=== PATIENT | male | born 1965 | race American Indian/Alaskan Native ===

== ENCOUNTER 2019-05-26 17:18 | Inpatient (IN) | payer MEDICARE, OTHER, SELFPAY ==
[2019-05-26] VITALS (20 sets, daily range): BP systolic 110–153; BP diastolic 54–88; PULSE 72–85; RESP 16–41; TEMP 36.9–38.3; O2SAT 90–94; BMI 55.6
--- NOTE | 2019-05-26 17:29 | DI.RAD.S_ITS ---
PROCEDURE: XR CHEST 1V INDICATIONS: chest pain TECHNIQUE: One view of the chest was acquired. COMPARISON: None. FINDINGS: Surgical changes and devices: Left-sided dual-lead pacemaker is present. Lungs and pleura: Lungs demonstrate patchy multifocal bilateral alveolar opacities including horizontal midlung linear opacities and mild right pleural thickening. No significant effusion. No pneumothorax. Mediastinum: Mediastinal contours appear normal. Heart size is mildly enlarged. Bones and chest wall: No suspicious bony lesions. Overlying soft tissues appear unremarkable. IMPRESSION: 1. Multifocal bilateral alveolar opacities may be infectious or inflammatory. Pulmonary edema is not excluded but felt less likely. 2. Mild cardiomegaly with pacemaker. Dictated by: Samia Ferreira M.D. on 05/26/2019 at 18:49 Approved by: Samia Ferreira M.D. on 05/26/2019 at 18:50
[2019-05-26] MEDS: NITROGLYCERIN 0.4 MG SL TAB SL ×3 (17:40→18:28)
[2019-05-26 17:57] LABS: Add Manual Diff / Slide Review NO; Basophils Absolute Auto 100 /uL (0-100); Basophils Percent Auto 0.5 % (0-2); Eosinophils Absolute Auto 0 /uL (0-450); Eosinophils Percent Auto 0.3 % (2-4); Hemoglobin 16.8 g/dL (13.5-17.5); Lymphocytes Absolute Auto 300 /uL (1100-4500); Mean Corpuscular HGB Conc 34.2 % (30-36); Mean Corpuscular Hemoglobin 32.4 PG (26-34); Mean Corpuscular Volume 94.8 fL (80-100); Monocytes Absolute Auto 800 /uL (0-900); Monocytes Percent Auto 8.1 % (3-14); Neutrophils Absolute Auto 9100 /uL (1500-7000); Neutrophils Percent Auto 88.1 % (50-75); Platelet Count 165 X10^3/uL (150-400); Red Blood Cell Count 5.18 X10^6/uL (4.5-5.9); Red Cell Distribution Width 13.5 % (11.6-14.8); White Blood Cell Count 10.4 X10^3/uL (4.5-11.0)
[2019-05-26 18:02] LABS: INR 1.2 (0.9-1.3)
[2019-05-26] MEDS: MORPHINE 4 MG/ML INJ IV ×2 (18:02→20:30)
[2019-05-26 18:04] LABS: PTT Partial Thromboplastin Tim 36 SECONDS (26.4-36.2)
[2019-05-26 18:08] LABS: Alanine Aminotransferase 16 IU/L (<50); Albumin 4.3 g/dL (3.5-5.0); Albumin Globulin Ratio 1.2 (1.0-2.8); Alkaline Phosphatase 123 U/L (38-126); Aspartate Aminotransferase 22 IU/L (17-59); BUN Creatinine Ratio 12.9 (6-22); Bilirubin Total 0.8 mg/dL (0.2-1.3); Blood Urea Nitrogen 9 mg/dL (9-20); Calcium 9.2 mg/dL (8.4-10.2); Carbon Dioxide 27 mmol/L (22-32); Chloride 105 mmol/L (98-107); Creatine Kinase 94 U/L (55-170); Estimated Glomerular Filt Rate > 60.0 mL/min (>60); Globulin 3.6 g/dL (1.7-4.1); Glucose 120 mg/dL (70-100); HEMOLYSIS 15 (0-50); Lipase 22 U/L (23-300); Magnesium 1.7 mg/dL (1.6-2.3); Sodium 139 mmol/L (137-145); Total Protein 7.9 g/dL (6.3-8.2)
--- NOTE | 2019-05-26 18:18 | ED.CHESTPAIN ---
HPI - Chest Pain General Chief Complaint: Chest Pain Stated Complaint: chest pain/has pacemaker difibulater 3 lead Time Seen by Provider: 05/26/19 18:08 Source: patient Mode of arrival: Wheelchair Limitations: no limitations History of Present Illness HPI narrative: This is a 53-year-old male who comes to the emergency department with complaint of chest pain and shortness of breath that he states started about 2:00 a.m. this afternoon. Patient states that yesterday he was around his brother who has been sick with upper respiratory cold cough and congestive type symptoms. He started feeling a little bit of nasal congestion and mild cough although he denies any fevers. He states that the shortness of breath was sort of a slow onset. Chest pain is centralized maybe some slight radiation to his back but not to neck or arms. He describes it as a 7/10 initially 5/10 after nitro. He has also noticed swelling in his lower extremities for the past 4 days and started taking an extra Lasix. Patient has been slightly nauseated but no vomiting. No issues with bowel movement or urination. Patient states he has had a heart attack in the past he states he has had a cardiac catheterization but did not have any angioplasty or stents placed. He is on Eliquis he does have a defibrillator/pacemaker and states he had ablation in 2018 as well. He denies any other surgical interventions. Patient states he is allergic to aspirin and gets anaphylaxis. 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 He also uses a CPAP and is supposed to use oxygen with his CPAP (has nasal prongs) he states he typically runs around 93% when he has seen his physicians. He is on carvedilol, lisinopril, Lasix, denies any diabetes or renal issues. States that he is currently homeless in visiting family in an [facility] but normally lives in [place]. Related Data Home Medications Medication Instructions Recorded Confirmed apixaban [Eliquis] 5 mg PO BID 05/26/19 05/26/19 carvedilol 12.5 mg PO BID 05/26/19 05/26/19 duloxetine 90 mg PO DAILY 05/26/19 05/26/19 furosemide 40 mg PO DAILY 05/26/19 05/26/19 lamotrigine 25 mg PO BEDTIME 05/26/19 05/26/19 lisinopril 5 mg PO BID 05/26/19 05/26/19 oxycodone-acetaminophen 1 tab PO QID PRN 05/26/19 05/26/19 spironolactone 25 mg PO DAILY 05/26/19 05/26/19 Allergies Allergy/AdvReac Type Severity Reaction Status Date / Time aspirin Allergy Severe Anaphylaxis Verified 05/26/19 20:05 Review of Systems Review of Systems ROS Unobtainable: All systems reviewed & are unremarkable except as noted in HPI and below Patient History Medical History Asthma (Acute) Atrial fibrillation with RVR (Acute) CHF (congestive heart failure) (Acute) Hypertension (Acute) Hypokalemia (Acute) BIPIN (obstructive sleep apnea) (Acute) Surgical History AICD (automatic cardioverter/defibrillator) present (Acute) H/O cardiac radiofrequency ablation (Acute) Hx of tonsillectomy (Acute) Social History household members: none Smoking Status: Former smoker Smoking Status: Former smoker alcohol intake frequency: 0-2 drinks per day Substance Use Type: does not use Exam Narrative Exam Narrative: GENERAL: Alert and oriented x three, obese male in mild distress. HEENT: Head normocephalic, atraumatic, EOMI, pupils reactive, face symmetric, moist mucous membranes NECK: Supple, full range of motion CARDIOVASCULAR: Regular rate and rhythm without murmurs, rubs or gallops. RESPIRATORY: Breath sounds equal bilaterally, no wheezes, no rhonchi. Crackles bilateral bases but auscultated easier on right. Positive for tachypnea. No accessory muscle use. No audible wheeze. No stridor. ABDOMEN: Soft, nontender. Normoactive bowel sounds all 4 quadrants. No guarding or rebound, rigidity, no mass : No CVA tenderness EXTREMITIES: Normal range of motion, trace edema bilateral lower extremities. Neurovascularly intact NEUROLOGICAL: Cranial nerves II through XII grossly intact. Moving all extremities SKIN: Warm, dry, no petechiae, no rashes or lesions. Initial Vital Signs Initial Vital Signs: Vital Signs Temperature 98.4 F 05/26/19 17:20 Pulse Rate 75 05/26/19 17:20 Respiratory Rate 40 H 05/26/19 17:20 Blood Pressure 147/81 H 05/26/19 17:20 Pulse Oximetry 90 L 05/26/19 17:20 Course Orders Ordered: Albuterol (Ventolin) 2.5 mg INH [id number] PRN PRN Reason: Shortness Of Breath Albuterol/Ipratropium (Duoneb) 3 ml INH RTBID MAEGAN Last Admin: 05/27/19 04:51 Dose: 3 ml Documented by: MARCOSARP Apixaban (Eliquis) 5 mg PO BID MAEGAN Carvedilol (Coreg) 12.5 mg PO BID MAEGAN Duloxetine HCl (Cymbalta) 90 mg PO DAILY MAEGAN Furosemide (Lasix) 40 mg PO DAILY MAEGAN Lisinopril (Zestril) 5 mg PO BID MAEGAN Oseltamivir Phosphate (Tamiflu) 75 mg PO BID [facility] Stop: 06/01/19 08:59 Pantoprazole Sodium (Protonix) 40 mg IV DAILY [facility] Sodium Chloride (Normal Saline 0.9% Flush) 10 ml IV PRN PRN PRN Reason: Flush Last Admin: 05/27/19 02:40 Dose: 10 ml Documented by: SSARDEL Sodium Chloride (Normal Saline 0.9% Flush) 10 ml IV BID [facility] Spironolactone (Aldactone) 25 mg PO DAILY [facility] Discontinued Medications Acetaminophen (Tylenol) 975 mg PO NOW ONE Stop: 05/26/19 18:53 Last Admin: 05/26/19 18:56 Dose: 975 mg Documented by: TARAN Fentanyl (Sublimaze) 50 mcg IV NOW ONE Stop: 05/26/19 18:20 Last Admin: 05/26/19 19:37 Dose: 50 mcg Documented by: TARAN Furosemide (Lasix) 40 mg IV NOW ONE Stop: 05/26/19 18:20 Last Admin: 05/26/19 18:28 Dose: 40 mg Documented by: TARAN Morphine Sulfate (Morphine) 4 mg IV NOW ONE Stop: 05/26/19 17:57 Last Admin: 05/26/19 18:02 Dose: 4 mg Documented by: TARAN Morphine Sulfate (Morphine) 4 mg IV NOW ONE Stop: 05/26/19 20:17 Last Admin: 05/26/19 20:30 Dose: 4 mg Documented by: TARAN Morphine Sulfate (Morphine) 4 mg IV NOW ONE Stop: 05/27/19 02:06 Last Admin: 05/27/19 02:40 Dose: 4 mg Documented by: TREVER Nitroglycerin (Nitrostat) 0.4 mg SL [id number] PRN PRN Reason: Chest Pain Last Admin: 05/26/19 18:28 Dose: 0.4 mg Documented by: Admin: 05/26/19 18:04 Dose: 0.4 mg Documented by: Admin: 05/26/19 17:40 Dose: 0.4 mg Documented by: TARAN Nitroglycerin (Nitro-Bid) 1 inch TOP NOW ONE Stop: 05/26/19 18:25 Last Admin: 05/26/19 18:31 Dose: 1 inch Documented by: TARAN Oseltamivir Phosphate (Tamiflu) 75 mg PO NOW ONE Stop: 05/26/19 19:20 Last Admin: 05/26/19 20:19 Dose: 75 mg Documented by: TARAN Vital Signs Vital signs: Vital Signs - 8 hr 05/26/19 17:20 05/26/19 17:25 05/26/19 17:40 Temperature 98.4 F Pulse Rate 75 78 Respiratory Rate 40 H 38 H Blood Pressure 147/81 H 146/62 H Blood Pressure [Left Arm] 134/69 Pulse Oximetry 90 L 94 05/26/19 17:41 05/26/19 17:59 05/26/19 18:04 Temperature Pulse Rate 72 75 75 Respiratory Rate 38 H 32 H Blood Pressure 125/62 Blood Pressure [Left Arm] 146/62 H 110/54 L Pulse Oximetry 92 91 05/26/19 18:27 05/26/19 18:28 05/26/19 18:31 Temperature Pulse Rate 75 75 75 Respiratory Rate 32 H Blood Pressure 121/64 127/64 Blood Pressure [Left Arm] 121/64 Pulse Oximetry 90 L 05/26/19 18:45 05/26/19 18:56 05/26/19 19:00 Temperature 101 F H Pulse Rate 75 75 Respiratory Rate 33 H 33 H Blood Pressure Blood Pressure [Left Arm] 128/67 139/72 Pulse Oximetry 91 92 05/26/19 19:15 05/26/19 19:30 Temperature Pulse Rate 75 75 Respiratory Rate 39 H 35 H Blood Pressure Blood Pressure [Left Arm] 139/72 132/67 Pulse Oximetry 92 MDM - Chest Pain Lab Data Attestation: I reviewed the patient's lab results. Result diagrams: 05/27/19 03:10 05/27/19 03:10 Labs: Lab Results 05/26/19 05/26/19 05/26/19 Range/Units 17:42 17:42 17:42 WBC 10.4 (4.5-11.0) X10^3/uL RBC 5.18 (4.5-5.9) X10^6/uL Hgb 16.8 (13.5-17.5) g/dL Hct 49.0 (41-53) % MCV 94.8 (80-100) fL MCH 32.4 (26-34) PG MCHC 34.2 (30-36) % RDW 13.5 (11.6-14.8) % Plt Count 165 (150-400) X10^3/uL Neut % (Auto) 88.1 H (50-75) % Lymph % (Auto) 3.0 L (25-40) % Levy % (Auto) 8.1 (3-14) % Eos % (Auto) 0.3 L (2-4) % Baso % (Auto) 0.5 (0-2) % Neut # (Auto) 9100 H (7069-6172) /uL Lymph # (Auto) 300 L (9520-4961) /uL Levy # (Auto) 800 (0-900) /uL Eos # (Auto) 0 (0-450) /uL Baso # (Auto) 100 (0-100) /uL PT 14.0 H (10.1-12.7) SECONDS INR 1.2 (0.9-1.3) APTT 36 (26.4-36.2) SECONDS ABG pH (7.35-7.45) ABG pCO2 (35-45) mmHg ABG pO2 (80-100) mmHg ABG HCO3 (22-26) mmol/L ABG Total CO2 (21-31) mmol/L ABG O2 Saturation (95-100) % ABG Base Excess (-2-2) mmol/L FiO2 Sodium 139 (137-145) mmol/L Potassium 4.0 (3.4-5.1) mmol/L Chloride 105 (98-107) mmol/L Carbon Dioxide 27 (22-32) mmol/L BUN 9 (9-20) mg/dL Creatinine 0.70 (0.66-1.25) mg/dL Estimated GFR > 60.0 (>60) mL/min BUN/Creatinine Ratio 12.9 (6-22) Glucose 120 H (70-100) mg/dL Lactate (0.7-2.1) mmol/L Calcium 9.2 (8.4-10.2) mg/dL Magnesium 1.7 (1.6-2.3) mg/dL Total Bilirubin 0.8 (0.2-1.3) mg/dL AST 22 (17-59) IU/L ALT 16 (<50) IU/L Alkaline Phosphatase 123 (38-126) U/L Total Creatine Kinase 94 (55-170) U/L CK-MB (CK-2) TNP CK-MB (CK-2) Rel Index TNP Troponin I < 0.012 (0.01-0.034) ng/mL NT-Pro-B Natriuret Pep 1060 H (<125) pg/mL Total Protein 7.9 (6.3-8.2) g/dL Albumin 4.3 (3.5-5.0) g/dL Globulin 3.6 (1.7-4.1) g/dL Albumin/Globulin Ratio 1.2 (1.0-2.8) Lipase 22 L (23-300) U/L Urine Color Urine Appearance Urine pH (4.5-8.0) Ur Specific [place] (1.000-1.035) Urine Protein (Negative) Urine Glucose (UA) (Negative) g/dL Urine Ketones (NEGATIVE) Urine Occult Blood (Negative) Urine Nitrate (Negative) Urine Bilirubin (NEGATIVE) Urine Urobilinogen (0.2) E.U./dL Ur Leukocyte Esterase (NEGATIVE) Urine RBC (0-5/HPF) Urine WBC (0-5/HPF) Ur Squamous Epith Cells (0-5/HPF) Urine Bacteria (None) Ur Culture Indicated? Influenza A (RT-PCR) (NEGATIVE) Influenza B (RT-PCR) (NEGATIVE) 05/26/19 05/26/19 05/26/19 Range/Units 18:17 18:35 19:29 WBC (4.5-11.0) X10^3/uL RBC (4.5-5.9) X10^6/uL Hgb (13.5-17.5) g/dL Hct (41-53) % MCV (80-100) fL MCH (26-34) PG MCHC (30-36) % RDW (11.6-14.8) % Plt Count (150-400) X10^3/uL Neut % (Auto) (50-75) % Lymph % (Auto) (25-40) % Levy % (Auto) (3-14) % Eos % (Auto) (2-4) % Baso % (Auto) (0-2) % Neut # (Auto) (9189-5825) /uL Lymph # (Auto) (2427-3053) /uL Levy # (Auto) (0-900) /uL Eos # (Auto) (0-450) /uL Baso # (Auto) (0-100) /uL PT (10.1-12.7) SECONDS INR (0.9-1.3) APTT (26.4-36.2) SECONDS ABG pH 7.33 L (7.35-7.45) ABG pCO2 51.6 H (35-45) mmHg ABG pO2 61 L (80-100) mmHg ABG HCO3 27 H (22-26) mmol/L ABG Total CO2 29 (21-31) mmol/L ABG O2 Saturation 89 L (95-100) % ABG Base Excess 1.0 (-2-2) mmol/L FiO2 0.45 Sodium (137-145) mmol/L Potassium (3.4-5.1) mmol/L Chloride (98-107) mmol/L Carbon Dioxide (22-32) mmol/L BUN (9-20) mg/dL Creatinine (0.66-1.25) mg/dL Estimated GFR (>60) mL/min BUN/Creatinine Ratio (6-22) Glucose (70-100) mg/dL Lactate 1.2 (0.7-2.1) mmol/L Calcium (8.4-10.2) mg/dL Magnesium (1.6-2.3) mg/dL Total Bilirubin (0.2-1.3) mg/dL AST (17-59) IU/L ALT (<50) IU/L Alkaline Phosphatase (38-126) U/L Total Creatine Kinase (55-170) U/L CK-MB (CK-2) CK-MB (CK-2) Rel Index Troponin I (0.01-0.034) ng/mL NT-Pro-B Natriuret Pep (<125) pg/mL Total Protein (6.3-8.2) g/dL Albumin (3.5-5.0) g/dL Globulin (1.7-4.1) g/dL Albumin/Globulin Ratio (1.0-2.8) Lipase (23-300) U/L Urine Color Urine Appearance Urine pH (4.5-8.0) Ur Specific [place] (1.000-1.035) Urine Protein (Negative) Urine Glucose (UA) (Negative) g/dL Urine Ketones (NEGATIVE) Urine Occult Blood (Negative) Urine Nitrate (Negative) Urine Bilirubin (NEGATIVE) Urine Urobilinogen (0.2) E.U./dL Ur Leukocyte Esterase (NEGATIVE) Urine RBC (0-5/HPF) Urine WBC (0-5/HPF) Ur Squamous Epith Cells (0-5/HPF) Urine Bacteria (None) Ur Culture Indicated? Influenza A (RT-PCR) Flu a positive H (NEGATIVE) Influenza B (RT-PCR) Flu b negative (NEGATIVE) 05/26/19 Range/Units 19:33 WBC (4.5-11.0) X10^3/uL RBC (4.5-5.9) X10^6/uL Hgb (13.5-17.5) g/dL Hct (41-53) % MCV (80-100) fL MCH (26-34) PG MCHC (30-36) % RDW (11.6-14.8) % Plt Count (150-400) X10^3/uL Neut % (Auto) (50-75) % Lymph % (Auto) (25-40) % Levy % (Auto) (3-14) % Eos % (Auto) (2-4) % Baso % (Auto) (0-2) % Neut # (Auto) (7909-9821) /uL Lymph # (Auto) (9978-3794) /uL Levy # (Auto) (0-900) /uL Eos # (Auto) (0-450) /uL Baso # (Auto) (0-100) /uL PT (10.1-12.7) SECONDS INR (0.9-1.3) APTT (26.4-36.2) SECONDS ABG pH (7.35-7.45) ABG pCO2 (35-45) mmHg ABG pO2 (80-100) mmHg ABG HCO3 (22-26) mmol/L ABG Total CO2 (21-31) mmol/L ABG O2 Saturation (95-100) % ABG Base Excess (-2-2) mmol/L FiO2 Sodium (137-145) mmol/L Potassium (3.4-5.1) mmol/L Chloride (98-107) mmol/L Carbon Dioxide (22-32) mmol/L BUN (9-20) mg/dL Creatinine (0.66-1.25) mg/dL Estimated GFR (>60) mL/min BUN/Creatinine Ratio (6-22) Glucose (70-100) mg/dL Lactate (0.7-2.1) mmol/L Calcium (8.4-10.2) mg/dL Magnesium (1.6-2.3) mg/dL Total Bilirubin (0.2-1.3) mg/dL AST (17-59) IU/L ALT (<50) IU/L Alkaline Phosphatase (38-126) U/L Total Creatine Kinase (55-170) U/L CK-MB (CK-2) CK-MB (CK-2) Rel Index Troponin I (0.01-0.034) ng/mL NT-Pro-B Natriuret Pep (<125) pg/mL Total Protein (6.3-8.2) g/dL Albumin (3.5-5.0) g/dL Globulin (1.7-4.1) g/dL Albumin/Globulin Ratio (1.0-2.8) Lipase (23-300) U/L Urine Color Yellow Urine Appearance Clear Urine pH 7.5 (4.5-8.0) Ur Specific [place] 1.015 (1.000-1.035) Urine Protein Negative (Negative) Urine Glucose (UA) Negative (Negative) g/dL Urine Ketones Negative (NEGATIVE) Urine Occult Blood Negative (Negative) Urine Nitrate Negative (Negative) Urine Bilirubin Negative (NEGATIVE) Urine Urobilinogen 1.0 (0.2) E.U./dL Ur Leukocyte Esterase Negative (NEGATIVE) Urine RBC 0-1/hpf (0-5/HPF) Urine WBC 0-1/hpf (0-5/HPF) Ur Squamous Epith Cells 0-1 /hpf (0-5/HPF) Urine Bacteria None seen (None) Ur Culture Indicated? Cult not indicated Influenza A (RT-PCR) (NEGATIVE) Influenza B (RT-PCR) (NEGATIVE) Imaging Data Chest x-ray: Radiologist's Impression: [address] [address] XRay Report Signed Patient: Cory Garcia [facility]#: [id number] : 1965Acct:[id number] Age/Sex: 53 / MDate of Service: 05/26/19 Loc: ED Accession Number: [id number] Procedure: XR chest 1V Ordering Provider: Reggie Pierre MD PROCEDURE: XR CHEST 1V INDICATIONS: chest pain TECHNIQUE: One view of the chest was acquired. COMPARISON: None. FINDINGS: Surgical changes and devices: Left-sided dual-lead pacemaker is present. Lungs and pleura: Lungs demonstrate patchy multifocal bilateral alveolar opacities including horizontal midlung linear opacities and mild right pleural thickening. No significant effusion. No pneumothorax. Mediastinum: Mediastinal contours appear normal. Heart size is mildly enlarged. Bones and chest wall: No suspicious bony lesions. Overlying soft tissues appear unremarkable. IMPRESSION: 1. Multifocal bilateral alveolar opacities may be infectious or inflammatory. Pulmonary edema is not excluded but felt less likely. 2. Mild cardiomegaly with pacemaker. Dictated by: Samia Ferreira M.D. on 05/26/2019 at 18:49 Approved by: Samia Ferreira M.D. on 05/26/2019 at 18:50 ECG Data Attestation: I personally reviewed and interpreted this ECG as follows: Prior ECG tracings: not available for review Interpretation: Ventricular raced rhythm with a rate of 75, QRS of 169 and QTC of 443. Patient does have some ST depression in V1 through V3. No elevation is appreciated. No prior EKG available. [facility] Narrative Medical decision making narrative: 53-year-old male who comes in with chest pain and shortness of breath but some recent upper respiratory symptoms. Patient's influenza is positive although he also looks to be in CHF with a BNP that is quite elevated. Troponin is negative. Patient received nitro and morphine with minimal improvement. He was hypoxic into the 89% range he states he typically runs 93% and with his CPAP at home is supposed to have oxygen although he does not. Patient's CBC, troponin, electrolytes and renal function were normal range. Chest x-ray shows multifocal changes which could be infectious or inflammatory, pulmonary edema not excluded but felt less likely with some mild cardiomegaly. Patient's chest pain started about 2:00 p.m. initial troponin which was least 4 hours from onset was negative. BiPAP shows pH is 7.23, CO2 of 51 with a PaO2 is 61 and a bicarb a 27. Patient was on BiPAP at this point. FiO2 was increased from 45-50%. Discussed with nurse practitioner Chepe who accepts plan for obsess at this time. Eyes patient may improve with some diuresis and may be able to potentially be discharged in the next 24-48 hours. Tamiflu was ordered. Patient did request pain medication for his all over pain he states his chest pain has resolved. He does normally take oxycodone for pain chronically as he is on BiPAP IV pain medication was ordered. Discharge Plan Departure Patient Disposition: Admitted as Observation Clinical Impression: Acute exacerbation of CHF (congestive heart failure), Influenza A Discharge Date/Time: 05/26/19 21:09 Admit Date/Time: 05/26/19 20:16 Admit Provider: Escobar Mo
[2019-05-26 18:19] LABS: NT-proBNP (BNP-Adult 18+) 1060 pg/mL (<125); Troponin I < 0.012 ng/mL (0.01-0.034)
[2019-05-26] MEDS: FUROSEMIDE 40 MG/4 ML VIAL IV (18:28)
[2019-05-26] MEDS: ONDANSETRON 4 MG/2 ML INJ (18:28)
[2019-05-26] MEDS: NITROGLYCERIN OINT 1 INCH/GM OINT...G. TOP (18:31)
[2019-05-26] MEDS: ACETAMINOPHEN 325 MG TABLET 975 MG PO (18:56)
[2019-05-26 19:09] LABS: Influenza A - CEPHEID Flu A POSITIVE (NEGATIVE); Influenza B - CEPHEID Flu B NEGATIVE (NEGATIVE)
[2019-05-26 19:28] LABS: Lactate (Lactic Acid) 1.2 mmol/L (0.7-2.1)
[2019-05-26] MEDS: fentaNYL 100 MCG/2 ML INJ 50 MCG IV (19:37)
[2019-05-26 19:38] LABS: Bacteria Urine None Seen
[2019-05-26 19:39] LABS: Appearance Urine UA CLEAR; Bilirubin Urine UA NEGATIVE (NEGATIVE); Color Urine UA YELLOW; Glucose Urine UA NEGATIVE (Negative); Ketones Urine UA NEGATIVE (NEGATIVE); Leukocyte Esterase Urine UA NEGATIVE (NEGATIVE); Nitrite Urine UA NEGATIVE (Negative); Occult Blood Urine UA NEGATIVE (Negative); Protein Urine UA NEGATIVE (Negative); Specific Gravity Urine UA 1.015 (1.000-1.035); pH Urine UA 7.5 (4.5-8.0)
[2019-05-26 19:50] LABS: Culture Indicated Urine Cult Not Indicated; RBC Urine 0-1/HPF (0-5/HPF); Squamous Epithelial Cell Urine 0-1 /HPF (0-5/HPF); WBC Urine 0-1/HPF (0-5/HPF)
[2019-05-26 19:53] LABS: Fractionated Inspired Oxygen 0.45; HCO3 ABG 27 mmol/L (22-26); Oxygen Saturation ABG 89 % (95-100); PCO2 ABG 51.6 mmHg (35-45); PO2 ABG 61 mmHg (80-100); TCO2 ABG 29 mmol/L (21-31); pH ABG 7.33 (7.35-7.45)
[2019-05-26] MEDS: OSELTAMIVIR 75 MG CAPSULE PO (20:19)
--- NOTE | 2019-05-26 22:08 | PC.NURSE ---
2145 - Pt to room from ER. Able to stand and transfer to bed. Alert, and oriented. On Bi-pap per RT, FIO2 55%, 18/10, 94%. Continues to report chest pain, 5 of 10, reports improvement from arrival. Nitro paste to left chest. HX of AICD/Pacer. Oriented to room and routine. Educated to safety and call light use. Call light in reach. Bed alarm on.
--- NOTE | 2019-05-26 23:33 | PM.HP.1 ---
History of Present Illness History of Present Illness Date Patient Seen: 05/26/19 Time Patient Seen: 23:33 Chief complaint: chest pain/has pacemaker difibulater 3 lead Narrative: The patient is a 53-year-old male with PMH of HTN, CAD, AFIB, chronic AC w/ Eliquis, HF, chronic respiratory failure with hypoxia, BIPIN, asthma, COPD, morbid obesity (BMI 55.7) and Oglesby's palsy. Patient presented to the ED on 05/26/2019 out of concern for chest pain and shortness of breath. Associated symptoms include chest pressure, exertional dyspnea, non-productive cough, pleurisy, wheezing, malaise, myalgia, dry heaving, and diminished appetite. Patient notes experiencing the aforementioned symptoms since morning of 05/26. Chest pressure has been present for 2 days. It is said to be localized to the epigastric. Chest discomfort is worse on inspiration. There is no reported radiation to the back, extremities, neck or jaw. Patient notes exertional dyspnea at baseline; however, it is noted to be worsening over the past 4 days. Over the past 4 days, patient notes presence of peripheral edema for which he has been taking an extra dose of Lasix. Patient reports exposure to brother on Sunday (05/23) with cough and flu-like symptoms. Patient reports chronic respiratory failure. He notes being prescribed oxygen in the past, however has not been wearing due to lack of access to oxygen for approximately 1 year due to being homeless. Patient reports adherence with his medication regimen, as well as adherence with routine follow-up care. WBC 10.4 Lactate 1.2 HGB 16.8 PLT 165 PT 14.0 INR 1.2 aPTT 36 Na 139 K 4.0 Mg 1.7 Cl 105 Ca 9.2 Alb 4.3 Glu 120 CO2 27 BUN 9 Cr 0.7 BUN:Cr 12.9 T.Bili 0.8 AST 22 ALT 16 ALP 123 CK 94 Lipase 22 Trop < 0.012 NT-proBNP 1060 Flu A POSITIVE UA negative ABG. pH 7.33 pCO2 51.6 pO2 61 HCO3 27 CXR. Multifocal bilateral alveolar opacities may be infectious or inflammatory. Pulmonary edema is not excluded, but felt less likely. Mild cardiomegaly with pacemaker. Patient History Medical History Asthma (Acute) Atrial fibrillation with RVR (Acute) CHF (congestive heart failure) (Acute) Hypertension (Acute) Hypokalemia (Acute) BIPIN (obstructive sleep apnea) (Acute) Surgical History AICD (automatic cardioverter/defibrillator) present (Acute) H/O cardiac radiofrequency ablation (Acute) Hx of tonsillectomy (Acute) Family & Social History Social History: household members none Prior Living Arrangements House Safety & Behavioral: Feels Safe in Current Yes Environment Been Physically Hurt or No Threatened By a Person Suicidal Ideation Description None Tobacco & Substance use: Smoking Status Former smoker alcohol intake frequency 0-2 drinks per day Substance Use Type does not use Meds Home Medications and Allergies Home Medications Medication Instructions Recorded Confirmed Type apixaban [Eliquis] 5 mg PO BID 05/26/19 05/26/19 History carvedilol 12.5 mg PO BID 05/26/19 05/26/19 History duloxetine 90 mg PO DAILY 05/26/19 05/26/19 History furosemide 40 mg PO DAILY 05/26/19 05/26/19 History lamotrigine 25 mg PO BEDTIME 05/26/19 05/26/19 History lisinopril 5 mg PO BID 05/26/19 05/26/19 History oxycodone-acetaminophen 1 tab PO QID PRN 05/26/19 05/26/19 History spironolactone 25 mg PO DAILY 05/26/19 05/26/19 History Allergies Allergy/AdvReac Type Severity Reaction Status Date / Time aspirin Allergy Severe Anaphylaxis Verified 05/26/19 20:05 Review of Systems Review of Systems ROS: Yes All systems reviewed with the patient and are negative except as otherwise documented Exam Vital Signs (past 8 hours): - 05/26/19 17:20 05/26/19 17:25 05/26/19 17:40 Temperature 98.4 F Pulse Rate 75 78 Respiratory Rate 40 H 38 H Blood Pressure 147/81 H 146/62 H Blood Pressure [Left Arm] 134/69 Pulse Oximetry 90 L 94 05/26/19 17:41 05/26/19 17:59 05/26/19 18:04 Temperature Pulse Rate 72 75 75 Respiratory Rate 38 H 32 H Blood Pressure 125/62 Blood Pressure [Left Arm] 146/62 H 110/54 L Pulse Oximetry 92 91 05/26/19 18:27 05/26/19 18:28 05/26/19 18:31 Temperature Pulse Rate 75 75 75 Respiratory Rate 32 H Blood Pressure 121/64 127/64 Blood Pressure [Left Arm] 121/64 Pulse Oximetry 90 L 05/26/19 18:45 05/26/19 18:56 05/26/19 19:00 Temperature 101 F H Pulse Rate 75 75 Respiratory Rate 33 H 33 H Blood Pressure Blood Pressure [Left Arm] 128/67 139/72 Pulse Oximetry 91 92 05/26/19 19:15 05/26/19 19:30 05/26/19 20:34 Temperature 99.5 F Pulse Rate 75 75 75 Respiratory Rate 39 H 35 H 28 H Blood Pressure Blood Pressure [Left Arm] 139/72 132/67 116/57 L Pulse Oximetry 92 90 L 05/26/19 21:03 05/26/19 21:30 Temperature Pulse Rate 75 Respiratory Rate 28 H Blood Pressure 127/76 Blood Pressure [Left Arm] 119/63 Pulse Oximetry 92 Fraction of Inspired Oxygen 0.55 Oxygen Delivery Method BiPAP Oxygen Flow Rate 6 Narrative Exam Narrative: Constitutional: NAD, morbidly obese habitus Neurologic: AOx3, no focal neurological deficits Head: NC, AT Eyes: PERRL, EOMI, Ears: external ears normal, no otorrhea Nose: external nose normal, no rhinorrhea or epistaxis Throat: MMM, oropharynx w/o exudate Neck: no masses, lymphadenopathy, or JVD Chest / Respiratory: Equal chest rise, unlabored respiratory effort, no tachypnea CTAB, diminished bases, no tenderness to palpation; on BiPAP tolerating well Heart / CV: S1S2, paced rhythm Abdomen / GI: marked central obesity, epigastric and LUQ / left subcostal region tenderness to palpation w/ left flank pain abd soft, mild distention : + left CVA Peripheral / Vascular: warm to touch, DP and PT pulses palpable, no edema Musc: full ROM of upper and lower extremities, adequate muscle tone and bulk Skin: no ecchymosis or suspicious lesions / ulcers Objective Labs Result Diagrams: 05/27/19 03:10 05/27/19 03:10 Labs: Laboratory Results - last 24 hr 05/26/19 05/26/19 05/26/19 17:42 17:42 17:42 WBC 10.4 RBC 5.18 Hgb 16.8 Hct 49.0 MCV 94.8 MCH 32.4 MCHC 34.2 RDW 13.5 Plt Count 165 Neut % (Auto) 88.1 H Lymph % (Auto) 3.0 L [place] % (Auto) 8.1 Eos % (Auto) 0.3 L Baso % (Auto) 0.5 Neut # (Auto) 9100 H Lymph # (Auto) 300 L [place] # (Auto) 800 Eos # (Auto) 0 Baso # (Auto) 100 PT 14.0 H INR 1.2 APTT 36 ABG pH ABG pCO2 ABG pO2 ABG HCO3 ABG Total CO2 ABG O2 Saturation ABG Base Excess FiO2 Sodium 139 Potassium 4.0 Chloride 105 Carbon Dioxide 27 BUN 9 Creatinine 0.70 Estimated GFR > 60.0 BUN/Creatinine Ratio 12.9 Glucose 120 H Lactate Calcium 9.2 Magnesium 1.7 Total Bilirubin 0.8 AST 22 ALT 16 Alkaline Phosphatase 123 Total Creatine Kinase 94 CK-MB (CK-2) TNP CK-MB (CK-2) Rel Index TNP Troponin I < 0.012 NT-Pro-B Natriuret Pep 1060 H Total Protein 7.9 Albumin 4.3 Globulin 3.6 Albumin/Globulin Ratio 1.2 Lipase 22 L Urine Color Urine Appearance Urine pH Ur Specific [place] Urine Protein Urine Glucose (UA) Urine Ketones Urine Occult Blood Urine Nitrate Urine Bilirubin Urine Urobilinogen Ur Leukocyte Esterase Urine RBC Urine WBC Ur Squamous Epith Cells Urine Bacteria Ur Culture Indicated? Influenza A (RT-PCR) Influenza B (RT-PCR) 05/26/19 05/26/19 05/26/19 18:17 18:35 19:29 WBC RBC Hgb Hct MCV MCH MCHC RDW Plt Count Neut % (Auto) Lymph % (Auto) [place] % (Auto) Eos % (Auto) Baso % (Auto) Neut # (Auto) Lymph # (Auto) [place] # (Auto) Eos # (Auto) Baso # (Auto) PT INR APTT ABG pH 7.33 L ABG pCO2 51.6 H ABG pO2 61 L ABG HCO3 27 H ABG Total CO2 29 ABG O2 Saturation 89 L ABG Base Excess 1.0 FiO2 0.45 Sodium Potassium Chloride Carbon Dioxide BUN Creatinine Estimated GFR BUN/Creatinine Ratio Glucose Lactate 1.2 Calcium Magnesium Total Bilirubin AST ALT Alkaline Phosphatase Total Creatine Kinase CK-MB (CK-2) CK-MB (CK-2) Rel Index Troponin I NT-Pro-B Natriuret Pep Total Protein Albumin Globulin Albumin/Globulin Ratio Lipase Urine Color Urine Appearance Urine pH Ur Specific [place] Urine Protein Urine Glucose (UA) Urine Ketones Urine Occult Blood Urine Nitrate Urine Bilirubin Urine Urobilinogen Ur Leukocyte Esterase Urine RBC Urine WBC Ur Squamous Epith Cells Urine Bacteria Ur Culture Indicated? Influenza A (RT-PCR) Flu a positive H Influenza B (RT-PCR) Flu b negative 05/26/19 19:33 WBC RBC Hgb Hct MCV MCH MCHC RDW Plt Count Neut % (Auto) Lymph % (Auto) [place] % (Auto) Eos % (Auto) Baso % (Auto) Neut # (Auto) Lymph # (Auto) [place] # (Auto) Eos # (Auto) Baso # (Auto) PT INR APTT ABG pH ABG pCO2 ABG pO2 ABG HCO3 ABG Total CO2 ABG O2 Saturation ABG Base Excess FiO2 Sodium Potassium Chloride Carbon Dioxide BUN Creatinine Estimated GFR BUN/Creatinine Ratio Glucose Lactate Calcium Magnesium Total Bilirubin AST ALT Alkaline Phosphatase Total Creatine Kinase CK-MB (CK-2) CK-MB (CK-2) Rel Index Troponin I NT-Pro-B Natriuret Pep Total Protein Albumin Globulin Albumin/Globulin Ratio Lipase Urine Color Yellow Urine Appearance Clear Urine pH 7.5 Ur Specific [place] 1.015 Urine Protein Negative Urine Glucose (UA) Negative Urine Ketones Negative Urine Occult Blood Negative Urine Nitrate Negative Urine Bilirubin Negative Urine Urobilinogen 1.0 Ur Leukocyte Esterase Negative Urine RBC 0-1/hpf Urine WBC 0-1/hpf Ur Squamous Epith Cells 0-1 /hpf Urine Bacteria None seen Ur Culture Indicated? Cult not indicated Influenza A (RT-PCR) Influenza B (RT-PCR) Assessment & Plan Assessment & Plan narrative: Patient is being admitted for acute respiratory failure with hypoxia and influenza Influenza A, acute, present on admission, active - Influenza A positive via PCR - Started on Tamiflu 75 mg BID x5 days, received first dose in ED (05/26 2018) - Supportive care Acute respiratory failure with hypoxia, present on admission, active - Suspected to be exacerbated by acute viral illness and superimposed on underlying co-morbid conditions of COPD, asthma, and morbid obesity - ABG... pH 7.33 pCO2 51.6 pO2 61 HCO3 27, partially compensated primary respiratory acidosis - CXR... Multifocal bilateral alveolar opacities, infection vs inflammation (pulm edema is not excluded, but felt less likely) - Labs and urine not indicative of an infection. No SIRS / sepsis. - BiPap, tolerating - Consult RT / BiPap ventilatory support protocol Epigastric pain, acute, present on admission, active Patient is having epigastric discomfort vs. mid-sternal or substernal chest pain. He does endorse sensation of pressure. There is associated discomfort in the LUQ of abdomen with radiation to left flank. - Cardiac vs gastrointestinal pathology - EKG. V-Paced - Trop WNL x1, continue trending - Pain not responsive to SL nitro, which was given in ED, but was responsive to morphine. - Consider abdominal imaging to r/o abdominal pathology - Will start on Protonix 40 mg IV daily - Echo in am Congestive heart failure (type unknown), chronic condition, present on admission, active Elevated BNP 1060. There is an inverse relationship b/w BNP and BMI, patient is morbidly obese w/ BMI of 55, BNP sensitivity is best interpreted taking into account entire clinical picture. Does not appear to be in volume excess on clinical exam. CXR does not exclude pulmonary edema, however does comment on it being less likely. 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 V-paced. - h/o radiofrequency ablation; PPM / AICD - Paced rhythm - Continue Eliquis for anticoagulation - Continue carvedilol Essential hypertension, chronic condition, present on admission, active - Normotensive, continue to monitor - Resume H[employer] PUNCH [employer]ESS OPERATOR antihypertensive regimen Homeless, present on admission, active - Will consult social work to visit with patient and offer resources Full Code. Patient does not have a formal health directive. He designates his niece Jillian is the surrogate decision maker. Home medications reviewed and reconciled accordingly VTE prophylaxis with Eliquis Quality VTE Deep Vein Thrombosis/Pulmonary Embolism Present on Admission: No
[2019-05-27] VITALS (18 sets, daily range): BP systolic 100–153; BP diastolic 52–88; PULSE 73–77; RESP 16–45; TEMP 36.4–37.2; O2SAT 89–95
[2019-05-27] MEDS: MORPHINE 4 MG/ML INJ IV (02:40)
[2019-05-27] MEDS: SODIUM CHLORIDE 0.9% FLUSH 10 ML IV ×3 (02:40→21:12)
--- NOTE | 2019-05-27 03:02 | DI.ECHO.S_ITS ---
[facility]---------+ [facility] +---------+ : : [address] [place] : : : : [id number] : : : : Phone: [phone]+ Echocardiogram Report + + :Name: ANDREAS BILL Study Date: 05/27/2019 Height: 70 in : :[facility] Weight: 388 lb : : Gender: Male BSA: 2.8 m2 : :: 1965 Age: 53 yrs BP: 124/69 mmHg: :Reason For Study: Chest pain : :Ordering Physician: Lea : :Hospitalist Performed By: Angelica Rodrigez : :Referring: JHON SMITH : + + Interpretation Summary The study quality was technically difficult. The left ventricle is severely dilated. Left ventricular systolic function is severely reduced. Left ventricular ejection fraction is estimated to be 25 +/- 5%. There is moderate global hypokinesis of the left ventricle. Inferior, inferoseptal sheehan are severely hypokinetic. Procedure: A two-dimensional transthoracic echocardiogram with color flow and Doppler was performed. The study quality was technically difficult. A contrast injection of Definity was performed to improve assessment of LV function. There is no prior echocardiogram noted for this patient. The patient was in normal sinus rhythm during the exam. Left Ventricle: The left ventricle is severely dilated. There is mild asymmetric left ventricular hypertrophy. Left ventricular systolic function is severely reduced. Left ventricular ejection fraction is estimated to be 25 +/- 5%. There is a moderate dyssynchronous contraction pattern due to the paced rhythm. There is moderate global hypokinesis of the left ventricle. Right Ventricle: There is a pacemaker lead in the right ventricle. The right ventricle is not well visualized. The right ventricular systolic function is normal. Atria: The left atrium is severely dilated. There is a catheter/pacemaker lead seen in the right atrium. The right atrium is severely dilated. There is no Doppler evidence for an interatrial shunt. Mitral Valve: The mitral valve is normal in structure and function. There is mild mitral regurgitation. Aortic Valve: The aortic valve is not well visualized. There is no aortic valve stenosis. No aortic regurgitation is present. Tricuspid Valve: The tricuspid valve is not well visualized, but is grossly normal. There is mild tricuspid regurgitation. Pulmonic Valve: The pulmonic valve is not well visualized. There is no pulmonic valvular regurgitation. Great Vessels: The aortic root is normal size. The ascending aorta is at the upper limits of normal in size. Inspiratory collapse cannot be assessed because of mechanical ventilation, thus CVP cannot be estimated.. Pericardium/ Pleura There is no pericardial effusion. MMode/2D Measurements & Calculations LVIDd: 7.0 cm LVOT diam: 2.4 cm EPSS: 1.4 cm Ao root diam: 3.4 cm IVSd: 0.99 cm asc Aorta Diam: 3.5 cm LVPWd: 1.2 cm LV choudhary. diameter/BSA (cm/m^2): 2.5 LA A2 area: 33.2 cm2 RA long axis: 6.3 cm LA A4 area: 30.9 cm2 RA area: 30.0 cm2 LA length (vol): 6.1 cm RA vol: 122.6 ml LA vol: 143.4 ml RA : 44.3 ml/m2 LA vol index: 51.9 ml/m2 IVC diam: 2.5 cm TAPSE: 2.6 cm Doppler Measurements & Calculations Ao V2 max: 110.3 cm/sec LVOT Max Selvin: 78.4 cm/sec Ao V2 mean: 81.6 cm/sec LV V1 max P.5 mmHg Ao max P.9 mmHg LV V1 VTI: 14.0 cm Ao mean P.9 mmHg LO(I,D): 2.9 cm2 Ao V2 VTI: 22.2 cm LO(V,D): 3.2 cm2 sev ratio: 0.63 LO indexed to BSA (cm^2/m^2): 1.0 MV E max selvin: 67.3 cm/sec TR max selvin: 247.5 cm/sec MV A max selvin: 2.0 cm/sec TR max P.5 mmHg MV E/A: 33.8 PA V2 max: 70.1 cm/sec Lat Peak E' Selvin: 7.9 cm/sec PA V2 mean: 47.0 cm/sec E/E' lat: 8.5 PA mean P.0 mmHg MV dec time: 0.22 sec PA pr(Accel): 27.6 mmHg MV P1/2t: 63.4 msec PA Accel Time: 0.10 sec MV P1/2t max selvin: 66.5 cm/sec SV(LVOT): 63.8 ml MVA(P1/2t): 3.5 cm2 Reading Physician:01:07 PM
[2019-05-27 03:30] LABS: Hematocrit 48.1 % (41-53); Hemoglobin 16.1 g/dL (13.5-17.5); Mean Corpuscular HGB Conc 33.5 % (30-36); Mean Corpuscular Volume 95.6 fL (80-100); Platelet Count 135 X10^3/uL (150-400); Red Blood Cell Count 5.04 X10^6/uL (4.5-5.9); Red Cell Distribution Width 13.8 % (11.6-14.8)
[2019-05-27 03:34] LABS: Add Manual Diff / Slide Review YES
[2019-05-27 03:38] LABS: Magnesium 1.8 mg/dL (1.6-2.3)
[2019-05-27 03:41] LABS: Alanine Aminotransferase 15 IU/L (<50); Albumin 4.1 g/dL (3.5-5.0); Albumin Globulin Ratio 1.1 (1.0-2.8); Alkaline Phosphatase 100 U/L (38-126); Aspartate Aminotransferase 23 IU/L (17-59); BUN Creatinine Ratio 14.4 (6-22); Bilirubin Total 0.5 mg/dL (0.2-1.3); Blood Urea Nitrogen 13 mg/dL (9-20); Calcium 8.7 mg/dL (8.4-10.2); Carbon Dioxide 29 mmol/L (22-32); Chloride 101 mmol/L (98-107); Estimated Glomerular Filt Rate > 60.0 mL/min (>60); Globulin 3.6 g/dL (1.7-4.1); Glucose 127 mg/dL (70-100); HEMOLYSIS 17 (0-50); Sodium 139 mmol/L (137-145); Total Protein 7.7 g/dL (6.3-8.2)
[2019-05-27 03:51] LABS: Troponin I < 0.012 ng/mL (0.01-0.034)
[2019-05-27] MEDS: ALBUTEROL/IPRATROPIUM 3 ML AMPUL INH ×2 (04:51→22:02)
[2019-05-27 06:38] LABS: Neutrophils Absolute Manual 6960 /uL (3000-5900); Total Cells Counted 100
--- NOTE | 2019-05-27 06:38 | PC.NURSE ---
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 4mg IV morphine given for 5-6/10 chest pain-effective. V-paced, no EKG changes, Troponin I 0.012 x2. Droplet precautions in place for influenza A.
[2019-05-27 06:39] LABS: Toxic Vacuolation Present
[2019-05-27] MEDS: ALBUTEROL 2.5 MG/3 ML NEB (ADULT) INH ×2 (08:12→12:36)
[2019-05-27] MEDS: APIXABAN 5 MG TABLET PO ×2 (08:23→20:50)
[2019-05-27] MEDS: carvediloL 12.5 MG TABLET PO (08:23)
[2019-05-27] MEDS: FUROSEMIDE 40 MG TABLET PO (08:23)
[2019-05-27] MEDS: DULOXETINE 30 MG CAPSULE 90 MG PO (08:23)
[2019-05-27] MEDS: KETOROLAC 30 MG/ML VIAL IV ×2 (08:23→21:06)
[2019-05-27] MEDS: OSELTAMIVIR 75 MG CAPSULE PO ×2 (08:24→20:50)
[2019-05-27] MEDS: lisinopriL 5 MG TABLET PO (08:24)
[2019-05-27] MEDS: PANTOPRAZOLE 40 MG VIAL IV (08:24)
[2019-05-27] MEDS: SPIRONOLACTONE 25 MG TABLET PO (08:24)
[2019-05-27] MEDS: guaiFENesin ER 600 MG TAB 1200 MG PO ×2 (08:24→20:49)
[2019-05-27] MEDS: ACETAMINOPHEN 325 MG TABLET 650 MG PO (08:24)
[2019-05-27 08:54] LABS: HCO3 ABG 29 mmol/L (22-26); PCO2 ABG 57.9 mmHg (35-45); PO2 ABG 53 mmHg (80-100); TCO2 ABG 30 mmol/L (21-31)
[2019-05-27 08:55] LABS: Oxygen Saturation ABG 83 % (95-100)
[2019-05-27 08:56] LABS: Fractionated Inspired Oxygen 0.55
[2019-05-27] MEDS: FUROSEMIDE 40 MG/4 ML VIAL IV (14:44)
--- NOTE | 2019-05-27 14:58 | P.PN_ITS ---
Subjective Subjective Date Patient Seen: 05/27/19 Interval history: Cory Garcia is a 53-year-old male with past medical history significant for CAD, hypertension, hyperlipidemia, chronic atrial fibrillation on Eliquis, COPD, chronic hypoxemic and hypercapnic respiratory failure previously on 3 L supplemental oxygen and BiPAP (however due to patient being homeless has not been on this for over 1 year), BIPIN, and morbid obesity with OHS who presented to the ED due to progressive worsening shortness of breath and chest pain. The patient is resting in bed comfortably and in no acute distress. He reports he is breathing better than yesterday. He no longer feels short of breath and his wheezing has resolved. He continues to have nonproductive cough, myalgias, and costal chondritis at bilateral sternal border. He has no other complaints and denies headache, ear pain, rhinitis, sore throat, chest pain, abdominal pain, nausea, vomiting, fever, chills, dysuria, diarrhea or constipation. Discussed patient's lung disease in detail and patient became upset when obesity hypoventilation syndrome was mentioned. Further explained to the patient that obesity hypoventilation syndrome is a physiological process due to central obesity preventing diaphragmatic contraction. Patient became upset and did not want to continue discussing obesity hypoventilation syndrome. He is voiding and eliminating without difficulty. He mostly resting in bed. Exam Vital Signs (past 8 hours): - 05/27/19 07:53 05/27/19 09:01 05/27/19 11:36 Temperature 97.6 F Pulse Rate 74 Respiratory Rate 38 H Blood Pressure 124/69 124/69 Pulse Oximetry 90 L 94 05/27/19 14:31 Temperature 97.6 F Pulse Rate 73 Respiratory Rate 28 H Blood Pressure 103/67 Pulse Oximetry 90 L Fraction of Inspired Oxygen 60 Oxygen Delivery Method BiPAP Oxygen Flow Rate 6 Narrative Exam Narrative: General: Middle-aged gentleman sitting in bed and in no acute distress, well- developed, well-nourished, appropriately interactive. HEENT: Normocephalic, atraumatic. External ears without defect. Pupils equal, round, and reactive to light. Anicteric sclerae, moist conjunctivae, and no lid lag. Oropharynx free of erythema and cobble stoning with moist mucosa. BiPAP mask in place tolerating well. Neck: Supple with full range of motion. No jugular venous distension. No bruits. No lymphadenopathy or thyromegaly. Cardiovascular: Regular rate and rhythm without murmurs, rubs, or gallops appreciated Pulmonary: Slightly diminished but clear to auscultation bilaterally in anterior lung oakley without crackles, wheezes, or rhonchi. Passive respirations on NIPPV with no use of accessory muscles. Abdomen: Soft, obese, bowel sounds present, nontender, nondistended. No hepatosplenomegaly or masses appreciated. Extremities: No clubbing, cyanosis, or edema. Skin: Normal temperature, turgor, and texture; no rash, ulcers, or subcutaneous nodules appreciated. Neurological: Cranial nerves grossly intact. Psychiatric: Normal mood and affect. Alert and oriented to person, place, and time. Objective Labs Result Diagrams: 05/28/19 04:46 05/28/19 04:46 Labs: Laboratory Results - last 24 hr 05/26/19 05/26/19 05/26/19 17:42 17:42 17:42 WBC 10.4 RBC 5.18 Hgb 16.8 Hct 49.0 MCV 94.8 MCH 32.4 MCHC 34.2 RDW 13.5 Plt Count 165 Neut % (Auto) 88.1 H Lymph % (Auto) 3.0 L Garrard % (Auto) 8.1 Eos % (Auto) 0.3 L Baso % (Auto) 0.5 Neut # (Auto) 9100 H Lymph # (Auto) 300 L Garrard # (Auto) 800 Eos # (Auto) 0 Baso # (Auto) 100 Total Counted Seg Neutrophils % Band Neutrophils % Lymphocytes % (Manual) Atypical Lymphs % Monocytes % (Manual) Neutrophils # (Manual) Toxic Vacuolation Plt Morphology Comment RBC Morphology PT 14.0 H INR 1.2 APTT 36 ABG pH ABG pCO2 ABG pO2 ABG HCO3 ABG Total CO2 ABG O2 Saturation ABG Base Excess FiO2 Sodium 139 Potassium 4.0 Chloride 105 Carbon Dioxide 27 BUN 9 Creatinine 0.70 Estimated GFR > 60.0 BUN/Creatinine Ratio 12.9 Glucose 120 H Lactate Calcium 9.2 Magnesium 1.7 Total Bilirubin 0.8 AST 22 ALT 16 Alkaline Phosphatase 123 Total Creatine Kinase 94 CK-MB (CK-2) TNP CK-MB (CK-2) Rel Index TNP Troponin I < 0.012 NT-Pro-B Natriuret Pep 1060 H Total Protein 7.9 Albumin 4.3 Globulin 3.6 Albumin/Globulin Ratio 1.2 Lipase 22 L Urine Color Urine Appearance Urine pH Ur Specific [place] Urine Protein Urine Glucose (UA) Urine Ketones Urine Occult Blood Urine Nitrate Urine Bilirubin Urine Urobilinogen Ur Leukocyte Esterase Urine RBC Urine WBC Ur Squamous Epith Cells Urine Bacteria Ur Culture Indicated? Nasal Screen MRSA (PCR) Influenza A (RT-PCR) Influenza B (RT-PCR) 05/26/19 05/26/19 05/26/19 18:17 18:35 19:29 WBC RBC Hgb Hct MCV MCH MCHC RDW Plt Count Neut % (Auto) Lymph % (Auto) Garrard % (Auto) Eos % (Auto) Baso % (Auto) Neut # (Auto) Lymph # (Auto) Garrard # (Auto) Eos # (Auto) Baso # (Auto) Total Counted Seg Neutrophils % Band Neutrophils % Lymphocytes % (Manual) Atypical Lymphs % Monocytes % (Manual) Neutrophils # (Manual) Toxic Vacuolation Plt Morphology Comment RBC Morphology PT INR APTT ABG pH 7.33 L ABG pCO2 51.6 H ABG pO2 61 L ABG HCO3 27 H ABG Total CO2 29 ABG O2 Saturation 89 L ABG Base Excess 1.0 FiO2 0.45 Sodium Potassium Chloride Carbon Dioxide BUN Creatinine Estimated GFR BUN/Creatinine Ratio Glucose Lactate 1.2 Calcium Magnesium Total Bilirubin AST ALT Alkaline Phosphatase Total Creatine Kinase CK-MB (CK-2) CK-MB (CK-2) Rel Index Troponin I NT-Pro-B Natriuret Pep Total Protein Albumin Globulin Albumin/Globulin Ratio Lipase Urine Color Urine Appearance Urine pH Ur Specific [place] Urine Protein Urine Glucose (UA) Urine Ketones Urine Occult Blood Urine Nitrate Urine Bilirubin Urine Urobilinogen Ur Leukocyte Esterase Urine RBC Urine WBC Ur Squamous Epith Cells Urine Bacteria Ur Culture Indicated? Nasal Screen MRSA (PCR) Influenza A (RT-PCR) Flu a positive H Influenza B (RT-PCR) Flu b negative 05/26/19 05/26/19 05/27/19 19:33 22:23 03:10 WBC RBC Hgb Hct MCV MCH MCHC RDW Plt Count Neut % (Auto) Lymph % (Auto) Garrard % (Auto) Eos % (Auto) Baso % (Auto) Neut # (Auto) Lymph # (Auto) Garrard # (Auto) Eos # (Auto) Baso # (Auto) Total Counted Seg Neutrophils % Band Neutrophils % Lymphocytes % (Manual) Atypical Lymphs % Monocytes % (Manual) Neutrophils # (Manual) Toxic Vacuolation Plt Morphology Comment RBC Morphology PT INR APTT ABG pH ABG pCO2 ABG pO2 ABG HCO3 ABG Total CO2 ABG O2 Saturation ABG Base Excess FiO2 Sodium 139 Potassium 4.0 Chloride 101 Carbon Dioxide 29 BUN 13 Creatinine 0.90 Estimated GFR > 60.0 BUN/Creatinine Ratio 14.4 Glucose 127 H Lactate Calcium 8.7 Magnesium Total Bilirubin 0.5 AST 23 ALT 15 Alkaline Phosphatase 100 Total Creatine Kinase CK-MB (CK-2) CK-MB (CK-2) Rel Index Troponin I NT-Pro-B Natriuret Pep Total Protein 7.7 Albumin 4.1 Globulin 3.6 Albumin/Globulin Ratio 1.1 Lipase Urine Color Yellow Urine Appearance Clear Urine pH 7.5 Ur Specific [place] 1.015 Urine Protein Negative Urine Glucose (UA) Negative Urine Ketones Negative Urine Occult Blood Negative Urine Nitrate Negative Urine Bilirubin Negative Urine Urobilinogen 1.0 Ur Leukocyte Esterase Negative Urine RBC 0-1/hpf Urine WBC 0-1/hpf Ur Squamous Epith Cells 0-1 /hpf Urine Bacteria None seen Ur Culture Indicated? Cult not indicated Nasal Screen MRSA (PCR) Negative for mrsa Influenza A (RT-PCR) Influenza B (RT-PCR) 05/27/19 05/27/19 05/27/19 03:10 03:10 03:10 WBC 8.0 RBC 5.04 Hgb 16.1 Hct 48.1 MCV 95.6 MCH 32.0 MCHC 33.5 RDW 13.8 Plt Count 135 L Neut % (Auto) Not Reportable Lymph % (Auto) Not Reportable Garrard % (Auto) Not Reportable Eos % (Auto) Not Reportable Baso % (Auto) Not Reportable Neut # (Auto) Lymph # (Auto) Not Reportable Garrard # (Auto) Not Reportable Eos # (Auto) Baso # (Auto) Not Reportable Total Counted 100 Seg Neutrophils % 82.0 H Band Neutrophils % 5.0 Lymphocytes % (Manual) 1.0 L Atypical Lymphs % 1.0 H Monocytes % (Manual) 11.0 Neutrophils # (Manual) 6960 H Toxic Vacuolation Present H Plt Morphology Comment RBC Morphology See below PT INR APTT ABG pH ABG pCO2 ABG pO2 ABG HCO3 ABG Total CO2 ABG O2 Saturation ABG Base Excess FiO2 Sodium Potassium Chloride Carbon Dioxide BUN Creatinine Estimated GFR BUN/Creatinine Ratio Glucose Lactate Calcium Magnesium 1.8 Total Bilirubin AST ALT Alkaline Phosphatase Total Creatine Kinase CK-MB (CK-2) CK-MB (CK-2) Rel Index Troponin I < 0.012 NT-Pro-B Natriuret Pep Total Protein Albumin Globulin Albumin/Globulin Ratio Lipase Urine Color Urine Appearance Urine pH Ur Specific [place] Urine Protein Urine Glucose (UA) Urine Ketones Urine Occult Blood Urine Nitrate Urine Bilirubin Urine Urobilinogen Ur Leukocyte Esterase Urine RBC Urine WBC Ur Squamous Epith Cells Urine Bacteria Ur Culture Indicated? Nasal Screen MRSA (PCR) Influenza A (RT-PCR) Influenza B (RT-PCR) 05/27/19 08:23 WBC RBC Hgb Hct MCV MCH MCHC RDW Plt Count Neut % (Auto) Lymph % (Auto) Garrard % (Auto) Eos % (Auto) Baso % (Auto) Neut # (Auto) Lymph # (Auto) Garrard # (Auto) Eos # (Auto) Baso # (Auto) Total Counted Seg Neutrophils % Band Neutrophils % Lymphocytes % (Manual) Atypical Lymphs % Monocytes % (Manual) Neutrophils # (Manual) Toxic Vacuolation Plt Morphology Comment RBC Morphology PT INR APTT ABG pH 7.30 L ABG pCO2 57.9 H ABG pO2 53 L ABG HCO3 29 H ABG Total CO2 30 ABG O2 Saturation 83 L* ABG Base Excess 2.0 FiO2 0.55 Sodium Potassium Chloride Carbon Dioxide BUN Creatinine Estimated GFR BUN/Creatinine Ratio Glucose Lactate Calcium Magnesium Total Bilirubin AST ALT Alkaline Phosphatase Total Creatine Kinase CK-MB (CK-2) CK-MB (CK-2) Rel Index Troponin I NT-Pro-B Natriuret Pep Total Protein Albumin Globulin Albumin/Globulin Ratio Lipase Urine Color Urine Appearance Urine pH Ur Specific [place] Urine Protein Urine Glucose (UA) Urine Ketones Urine Occult Blood Urine Nitrate Urine Bilirubin Urine Urobilinogen Ur Leukocyte Esterase Urine RBC Urine WBC Ur Squamous Epith Cells Urine Bacteria Ur Culture Indicated? Nasal Screen MRSA (PCR) Influenza A (RT-PCR) Influenza B (RT-PCR) Assessment & Plan Assessment & Plan narrative: Cory Garcia is a 53-year-old male with past medical history significant for CAD, hypertension, hyperlipidemia, chronic atrial fibrillation on Eliquis, COPD, chronic hypoxemic and hypercapnic respiratory failure previously on 3 L supplemental oxygen and BiPAP (however due to patient being homeless has not been on this for over 1 year), BIPIN, and morbid obesity with OHS who presented to the ED due to progressive worsening shortness of breath and chest pain. 1. Acute influenza A viral pneumonia, present on admission. Active. -Patient presented with progressive worsening shortness of breath. -Respiratory viral PCR positive for influenza A. No evidence of bacterial infection. -Continue Tamiflu 75 mg twice daily x 5 days. -Continue supportive care: Mucinex 1200 mg twice daily, Acapella every 1 hour while awake, BiPAP and supplemental oxygen as below. 2. Acute on chronic hypoxemic and hypercapnic respiratory failure with hypoxia, present on admission, active -Suspected to be exacerbated by acute viral illness and superimposed on underlying co-morbid conditions of COPD, asthma, morbid obesity with OHS and BIPIN. -ABG: pH 7.33 pCO2 51.6 pO2 61 HCO3 27, partially compensated primary respiratory acidosis. -Chest x-ray demonstrated multifocal bilateral alveolar opacities. -Continue respiratory therapy evaluation and treatment. Continue BiPAP per RT protocol with supplemental oxygen. Currently requiring FiO2 0.55. Continue to check ABG as needed to adjust ventilation settings on BiPAP. 3. Acute epigastric pain, present on admission. Resolved. -Patient had epigastric and sternal border pain that was likely musculoskeletal in the form of costochondritis from coughing. Pain was not responsive to sublingual nitroglycerin but was responsive to morphine which was given in the ED. -EKG demonstrated V-Paced -Troponin negative < 0.012 x 2. 4. Systolic congestive heart failure, chronic, present on admission. Stable. -Does not represent acute CHF exacerbation. -Elevated BNP 1060. There is an inverse relationship between BNP and BMI, patient is morbidly obese with a BMI of 55, BNP sensitivity is best interpreted taking into account entire clinical picture. Does not appear to be in volume excess on clinical exam. -Chest x-ray demonstrated multifocal bilateral alveolar opacities. Per my interpretation does not appear to be pulmonary edema. -Patient may have had symptoms of decompensated HF in the past 4 days, but it has improved with additional diuretic doses. -Received 40 mg of IV lasix in ED. Continue diuresis with home furosemide 40 mg daily. -Continue carvedilol 12.5 mg twice daily, lisinopril 5 mg twice daily, and spironolactone 25 mg daily 5. COPD/asthma, chronic, present on admission. Stable. -Does not represent COPD exacerbation. -No overt signs or symptoms of wheezing or bronchoconstriction; questionable decompensated state. -Continue duo nebs twice daily and albuterol nebs every 2 hours as needed for shortness of breath or wheezing. 7. Chronic atrial fibrillation, present on admission. Stable. -Patient has history of radiofrequency ablation and pacemaker with AICD. -Continue to monitor closely on telemetry. EKG demonstrated V pacing. -Continue anticoagulation with Eliquis 5 mg twice daily and rate control with carvedilol 12.5 mg twice daily. 8. Hypertension, chronic, present on admission. Stable. -Normotensive, continue to monitor -Continue carvedilol 12.5 mg twice daily, lisinopril 5 mg twice daily, and spironolactone 25 mg daily. -Switched oral to IV furosemide to see if further diuresis will help improve respiratory status. 9. Homeless, present on admission. Active. -Consulted DEPUTY EDITOR IN CHIEF and appreciate any way to help patient's disposition and provide resources. 10. Morbid obesity, chronic, present on admission. Stable. -BMI 56. -Patient reports 160 lb weight loss. Discussed obesity hypoventilation syndrome for which the patient became quite defensive and hostile. -Counseled patient on weight loss including diet lifestyle modification. Code status: Full Code. Patient does not have a formal health directive. He designates his niece Jillian is the surrogate decision maker. VTE prophylaxis:Eliquis Disposition: Patient remains hospitalized and barrier to disposition is improved oxygenation and hypercapnia. Quality VTE Deep Vein Thrombosis/Pulmonary Embolism Present on Admission: No
--- NOTE | 2019-05-27 15:03 | CM.DANOTE ---
Patient is a 53 year old male who was admitted on 05/26/19 OBS and changed to Inpt on 05/27/19 for Chest Pain, oxygen needs. Pt has MCR and COMM for insurance and his PCP is not listed. EMR was reviewed. Per , pt currently on bipap, droplet precautions for the Flu and homeless. met bedside with pt and confirmed that he is here visiting family and lives in his vehicle in [place] and could benefit from SNF at d/c for ongoing compliance with oxygen CPAP and therapy. Echo completed and pending results. EVER met bedside with pt and explained role and pt confirms that he lives in [place] and has two vehicles that he has been living in for the past year and has been working with a SW to apply for Medicaid and housing. Pt states he is unsure if his Medicaid is still pending or approved. Pt provided his SW name Onelia Means [phone] and agreeable with [place] SW to contact her to see if any coordination would be helpful towards [place] [facility]. SW called Onelia, and vm states she is SW at CHF clinic in [place] and SW left [facility] requesting call back for possible coordination but unclear if she is still primary contact or if maybe a Medicaid SW now involved? Pt states he has only been up in [facility] for about 1-2 days visiting brother and family in [place] before being admitted and pt is not looking to move or stay [place] [facility] but ongoing plan is to stay around [place]. 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 EVER discussed possible SNF and provided the SNF Choice list and pt states that he would be agreeable to SNF for ongoing oxygen and therapy needs but inquiring if any SNF's would allow his service dog, Leo 4 yo that helps with notifying pt when his oxygen levels are low, and pt currently does not have the service dog certification paper on him. SW stated that unknown if SNF's can have service dogs stay, but maybe visit and pt is agreeable with SW calling local [facility] SNF's to inquire if they can have dogs. Pt preference is to stay close to [facility] for SNF so family can visit. Pt aware that his homeless status may be a barrier to SNF placement. SW called [facility] admissions and [facility] admissions and discussed pt status and possible d/c to brother's house initially from SNF to reduce his homelessness barriers. Both facilities cautious with considering acceptance but both willing to review pt and discuss with their teams the possibility of accepting. [facility] reviewing and [facility] will call back to request clinicals if they are willing to consider further. SW has yet to then inquire about service dog policy. Plan: SW to follow for [facility] and [facility] discussion with their team regarding consideration of SNF placement. SW likely to need to make additional SNF referrals but limited time today to continue SNF search. SW likely to need to coordinate with pt's family if SNF willing to consider as a plan for initial d/c from SNF. JESUS Pop Discharge Planning/Care Management CM Discharge Assessment Start: 05/27/19 14:59 Freq: Status: Active Protocol: Document 05/27/19 14:59 BF (Rec: 05/27/19 15:03 BF [id number]) Discharge Planning Assessment Assigned Collar Separator JESUS Bruner Advance Directives? No Advance Directives on File No History Provided By Patient,Medical Record Has Patient been admitted in last 30 No days? Prior Living Arrangements Homeless Household Members none Type of transporation used prior to Drives own vehicle admit Independent with ADL's Yes Is patient alert and oriented? Yes Caregiver for Another No Community Services used prior to Oxygen Therapy admission: DME Already Rented / Owned Other Comment CPAP Patient/Family Preference [facility] Facility Barriers to Discharge Yes Comment Homeless, service dog Discharge Plan [facility]dc Facility Transportation Arrangement If pt accepted at SNF then facility to [place], if home then family to [place] Referrals Initiated [facility] Medicare Choice List Provided Yes SNF/HH Preference SNF near [facility] and one that may accept service dog Has Agency SNF been contacted Yes Whiteboard Updated in Patient Room with Yes name and ext. # of Collar Separator Review Status In Process Please Provide Date Initial DC 05/27/19 Assessment Was Performed Next Review Type Continued Stay Review
[2019-05-27 15:33] LABS: Fractionated Inspired Oxygen 0.65; HCO3 ABG 30 mmol/L (22-26); Oxygen Saturation ABG 90 % (95-100); PCO2 ABG 58.4 mmHg (35-45); PO2 ABG 65 mmHg (80-100); TCO2 ABG 32 mmol/L (21-31); pH ABG 7.32 (7.35-7.45)
[2019-05-27] MEDS: OXYCODONE/ACETAMINOPHEN 5/325 TABLET 1 TAB PO ×2 (18:19→21:49)
--- NOTE | 2019-05-27 21:52 | PC.NURSE ---
Addendum entered by Aurelia Puri R.N. 05/27/19 23:07: Pt has been rec. PO Percocet, not great results so far. Rates pain 6/10 at present. Bipap remains in place. Will address with [facility] Original Note: PM shift Pt is A/o x4, able to make needs known. Appears to be tolerated Bipap well. Requesting some time to eat, placed on hiflow NC @ 4-5L for approx 15 min while Pt ate meal. Cooperative. Requesting home pain control, Pt takes oxycodone daily. Order rec'd for same. Bipap settings 28/03 60% Fio2. Pt isnt tolerating being off bipap for long, Im just still out of breath moving around Enc bedrest and grouping Pt care
[2019-05-28] VITALS (18 sets, daily range): BP systolic 91–124; BP diastolic 49–73; PULSE 75–81; RESP 18–32; TEMP 35.8–36.6; O2SAT 88–97
[2019-05-28] MEDS: OXYCODONE/ACETAMINOPHEN 5/325 TABLET 1 TAB PO ×5 (02:21→21:40)
[2019-05-28] MEDS: ACETAMINOPHEN 325 MG TABLET 650 MG PO (02:22)
[2019-05-28] MEDS: KETOROLAC 30 MG/ML VIAL IV ×2 (02:22→22:03)
[2019-05-28 05:14] LABS: BUN Creatinine Ratio 20.9 (6-22); Blood Urea Nitrogen 23 mg/dL (9-20); Calcium 8.8 mg/dL (8.4-10.2); Carbon Dioxide 35 mmol/L (22-32); Chloride 101 mmol/L (98-107); Estimated Glomerular Filt Rate > 60.0 mL/min (>60); Glucose 98 mg/dL (70-100); HEMOLYSIS < 15 (0-50); Sodium 141 mmol/L (137-145)
[2019-05-28 05:20] LABS: Add Manual Diff / Slide Review NO; Basophils Absolute Auto 100 /uL (0-100); Basophils Percent Auto 1.7 % (0-2); Eosinophils Absolute Auto 100 /uL (0-450); Eosinophils Percent Auto 1.1 % (2-4); Hematocrit 50.9 % (41-53); Hemoglobin 16.9 g/dL (13.5-17.5); Lymphocytes Absolute Auto 400 /uL (1100-4500); Lymphocytes Percent Auto 8.6 % (25-40); Mean Corpuscular HGB Conc 33.2 % (30-36); Mean Corpuscular Hemoglobin 31.9 PG (26-34); Mean Corpuscular Volume 96.1 fL (80-100); Monocytes Absolute Auto 600 /uL (0-900); Monocytes Percent Auto 12.7 % (3-14); Neutrophils Absolute Auto 3800 /uL (1500-7000); Neutrophils Percent Auto 75.9 % (50-75); Platelet Count 118 X10^3/uL (150-400); Red Blood Cell Count 5.29 X10^6/uL (4.5-5.9); Red Cell Distribution Width 14.2 % (11.6-14.8); White Blood Cell Count 4.9 X10^3/uL (4.5-11.0)
--- NOTE | 2019-05-28 06:46 | PC.NURSE ---
Airworthiness Safety Inspector Note-Patient slept with Bi-pap on most of night FIO2 60%, 20/12, RR 26, SpO2 87-92%, LS expiratory rhonchi/wheeze to crackles in bases, short of breath when up to BSC to void. IV Toradol, Tylenol, and Percocet given per prn for pain.
[2019-05-28] MEDS: ALBUTEROL/IPRATROPIUM 3 ML AMPUL INH (07:50)
[2019-05-28] MEDS: APIXABAN 5 MG TABLET PO ×2 (10:31→21:41)
[2019-05-28] MEDS: carvediloL 12.5 MG TABLET PO ×2 (10:31→21:41)
[2019-05-28 10:32] LABS: PCO2 ABG 51.8 mmHg (35-45); PO2 ABG 65 mmHg (80-100); pH ABG 7.35 (7.35-7.45)
[2019-05-28] MEDS: DULOXETINE 30 MG CAPSULE 90 MG PO (10:32)
[2019-05-28] MEDS: lisinopriL 5 MG TABLET PO ×2 (10:32→21:41)
[2019-05-28] MEDS: FUROSEMIDE 40 MG TABLET PO (10:32)
[2019-05-28] MEDS: guaiFENesin ER 600 MG TAB 1200 MG PO ×2 (10:32→21:40)
[2019-05-28 10:33] LABS: HCO3 ABG 29 mmol/L (22-26); Oxygen Saturation ABG 91 % (95-100); TCO2 ABG 30 mmol/L (21-31)
[2019-05-28] MEDS: OSELTAMIVIR 75 MG CAPSULE PO ×2 (10:33→21:41)
[2019-05-28] MEDS: SPIRONOLACTONE 25 MG TABLET PO (10:33)
[2019-05-28] MEDS: SODIUM CHLORIDE 0.9% FLUSH 10 ML IV ×2 (10:33→21:41)
[2019-05-28] MEDS: PANTOPRAZOLE 40 MG VIAL IV (10:33)
--- NOTE | 2019-05-28 14:28 | P.PN_ITS ---
Subjective Subjective Date Patient Seen: 05/28/19 Interval history: Cory Garcia is a 53-year-old male with past medical history significant for CAD, hypertension, hyperlipidemia, chronic atrial fibrillation on Eliquis, COPD, chronic hypoxemic and hypercapnic respiratory failure previously on 3 L supplemental oxygen and BiPAP (however due to patient being homeless has not been on this for over 1 year), BIPIN, morbid obesity with OHS, 53-year-old male with PMH of HTN, CAD, AFIB, chronic AC w/ Eliquis, HF, chronic respiratory failure with hypoxia, BIPIN, who presented to the ED due to progressive worsening shortness of breath and chest pain. The patient is resting in bedside chair comfortably. Upon my entrance into the room the patient informs me that he is ready to go home. He states that he is ?going home tomorrow no matter what and that he has an appointment with his PCP as soon as he returns to [place].? He then proceeds to inform me that he has been stewing on this since yesterday? and reports that I ?pissed him off regarding obesity hypoventilation syndrome.? Attempted to discuss obesity hypoventilation syndrome and the physiological process once again which the patient became belligerent and refused to have me evaluate him or be in the room and asked me to leave. Exam Vital Signs (past 8 hours): - 05/28/19 16:00 05/28/19 16:26 05/28/19 16:51 Temperature 97.6 F Pulse Rate 75 75 Respiratory Rate 24 19 Blood Pressure 91/49 L Pulse Oximetry 88 L 90 L 89 L 05/28/19 18:38 05/28/19 20:16 05/28/19 20:52 Temperature 97.8 F Pulse Rate 75 Respiratory Rate 18 Blood Pressure 103/68 103/68 Pulse Oximetry 93 92 Fraction of Inspired Oxygen 55 Oxygen Delivery Method High Flow Nasal Cannula Oxygen Flow Rate 8 Narrative Exam Narrative: Exam not performed due to patient refusal Objective Labs Result Diagrams: 05/28/19 04:46 05/28/19 04:46 Labs: Laboratory Results - last 24 hr 05/28/19 05/28/19 05/28/19 04:46 04:46 10:05 WBC 4.9 RBC 5.29 Hgb 16.9 Hct 50.9 MCV 96.1 MCH 31.9 MCHC 33.2 RDW 14.2 Plt Count 118 L Neut % (Auto) 75.9 H Lymph % (Auto) 8.6 L [place] % (Auto) 12.7 Eos % (Auto) 1.1 L Baso % (Auto) 1.7 Neut # (Auto) 3800 Lymph # (Auto) 400 L [place] # (Auto) 600 Eos # (Auto) 100 Baso # (Auto) 100 ABG pH 7.35 ABG pCO2 51.8 H ABG pO2 65 L ABG HCO3 29 H ABG Total CO2 30 ABG O2 Saturation 91 L ABG Base Excess 3.0 H FiO2 0.50 Sodium 141 Potassium 4.0 Chloride 101 Carbon Dioxide 35 H BUN 23 H Creatinine 1.10 Estimated GFR > 60.0 BUN/Creatinine Ratio 20.9 Glucose 98 Calcium 8.8 Assessment & Plan Assessment & Plan narrative: Cory Garcia is a 53-year-old male with past medical history significant for CAD, hypertension, hyperlipidemia, chronic atrial fibrillation on Eliquis, COPD, chronic hypoxemic and hypercapnic respiratory failure previously on 3 L supplemental oxygen and BiPAP (however due to patient being homeless has not been on this for over 1 year), BIPIN, and morbid obesity with OHS who presented to the ED due to progressive worsening shortness of breath and chest pain. 1. Acute influenza A viral pneumonia, present on admission. Active. -Patient presented with progressive worsening shortness of breath. -Respiratory viral PCR positive for influenza A. No evidence of bacterial infection. -Continue Tamiflu 75 mg twice daily x 5 days. -Continue supportive care: Mucinex 1200 mg twice daily, Acapella every 1 hour while awake, BiPAP and supplemental oxygen as below. 2. Acute on chronic hypoxemic and hypercapnic respiratory failure with hypoxia, present on admission, active -Suspected to be exacerbated by acute viral illness and superimposed on underlying co-morbid conditions of COPD, asthma, morbid obesity with OHS and BIPIN. -ABG: pH 7.33 pCO2 51.6 pO2 61 HCO3 27, partially compensated primary respiratory acidosis. -Chest x-ray demonstrated multifocal bilateral alveolar opacities. -Continue respiratory therapy evaluation and treatment. Continue BiPAP per RT protocol with supplemental oxygen. Currently requiring FiO2 0.55. Continue to check ABG as needed to adjust ventilation settings on BiPAP. 3. Acute epigastric pain, present on admission. Resolved. -Patient had epigastric and sternal border pain that was likely musculoskeletal in the form of costochondritis from coughing. Pain was not responsive to sublingual nitroglycerin but was responsive to morphine which was given in the ED. -EKG demonstrated V-Paced -Troponin negative < 0.012 x 2. 4. Systolic congestive heart failure, chronic, present on admission. Stable. -Does not represent acute CHF exacerbation. -Elevated BNP 1060. There is an inverse relationship between BNP and BMI, patient is morbidly obese with a BMI of 55, BNP sensitivity is best interpreted taking into account entire clinical picture. Does not appear to be in volume excess on clinical exam. -Chest x-ray demonstrated multifocal bilateral alveolar opacities. Per my interpretation does not appear to be pulmonary edema. -Patient may have had symptoms of decompensated HF in the past 4 days, but it has improved with additional diuretic doses. -Received 40 mg of IV lasix in ED. Continue diuresis with home furosemide 40 mg daily. -Continue carvedilol 12.5 mg twice daily, lisinopril 5 mg twice daily, and spironolactone 25 mg daily 5. COPD/asthma, chronic, present on admission. Stable. -Does not represent COPD exacerbation. -No overt signs or symptoms of wheezing or bronchoconstriction; questionable decompensated state. -Continue duo nebs twice daily and albuterol nebs every 2 hours as needed for shortness of breath or wheezing. 7. Chronic atrial fibrillation, present on admission. Stable. -Patient has history of radiofrequency ablation and pacemaker with AICD. -Continue to monitor closely on telemetry. EKG demonstrated V pacing. -Continue anticoagulation with Eliquis 5 mg twice daily and rate control with carvedilol 12.5 mg twice daily. 8. Hypertension, chronic, present on admission. Stable. -Normotensive, continue to monitor -Continue carvedilol 12.5 mg twice daily, lisinopril 5 mg twice daily, and spironolactone 25 mg daily. -Switched oral to IV furosemide to see if further diuresis will help improve respiratory status. 9. Homeless, present on admission. Active. -Consulted LOADING MACHINE OPERATOR HELPER and appreciate any way to help patient's disposition and provide resources. 10. Morbid obesity, chronic, present on admission. Stable. -BMI 56. -Patient reports 160 lb weight loss. Discussed obesity hypoventilation syndrome for which the patient became quite defensive and hostile. -Counseled patient on weight loss including diet lifestyle modification. Code status: Full Code. Patient does not have a formal health directive. He designates his niece Jillian is the surrogate decision maker. VTE prophylaxis:Eliquis Disposition: Patient remains hospitalized and barrier to disposition is improved oxygenation and hypercapnia. Patient informs me that he will discharge tomorrow no matter what. Quality VTE Deep Vein Thrombosis/Pulmonary Embolism Present on Admission: No
--- NOTE | 2019-05-28 15:28 | PC.NURSE ---
Day Shift Note Pt on bipap 20/12 FiO2 55% from 0700 to 1200, ABG done at 1200 and reviewed with MD. Pt switched to 7L HFNC at this time, SpO2 90-92% per order parameters. Pt up SBA to bathroom, able to shower and sitting up in chair. Call light within reach, using appropriately to make needs known.
[2019-05-28] MEDS: ALBUTEROL 2.5 MG/3 ML NEB (ADULT) INH (16:26)
--- NOTE | 2019-05-28 18:16 | PC.NURSE ---
Addendum entered by Tiarra Modi R.N. 05/28/19 22:07: 2130 - Pt calm and cooperative. Able to take HS meds without difficulty. IV drsg reinforced. Patent. Pt agreeable to wear bi-pap this evening. 28/03, FIO2 55%, sats 93%. Call light in reach. Original Note: 1744 - Pt c/o discomfort to both IV's on left arm. Left wrist iv occluded. With flush of left forearm IV, pt jerked arm away and cried out. Both IV d/c'd. First attempt to restart IV, Pt pulled arm away prior to initial poke, causing needle to poke pt arm adjacent to vein. Encouraged pt to slow deep breath, Pt reports feeling anxious. Discussing interaction with MD this afternoon. Expressing frustration, states, she said I wouldn't have heart problems if I lost weight. Pt reports hx of depression especially following his divorce. Allowed to express feelings. Reviewed treatment plan and medications. Pt state that he will sign myself out in the morning. Discussed pt wearing bi-pap mask this evening. Pt says he would rather not, but would think about. SBA up chair for meal. Call light in reach.
[2019-05-29] VITALS (8 sets, daily range): BP systolic 89–93; BP diastolic 53; PULSE 75–78; RESP 19–30; TEMP 35.8–36.1; O2SAT 90–92
--- NOTE | 2019-05-29 07:39 | PM.DS.1 ---
History of Present Illness History of Present Illness Date Patient Seen: 05/29/19 Time Patient Seen: 07:46 Chief complaint: chest pain/has pacemaker difibulater 3 lead Narrative: As per Escobar ZENDEJAS: The patient is a 53-year-old male with PMH of HTN, CAD, AFIB, chronic AC w/ Eliquis, HF, chronic respiratory failure with hypoxia, BIPIN, asthma, COPD, morbid obesity (BMI 55.7) and Oglesby's palsy. Patient presented to the ED on 05/26/2019 out of concern for chest pain and shortness of breath. Associated symptoms include chest pressure, exertional dyspnea, non-productive cough, pleurisy, wheezing, malaise, myalgia, dry heaving, and diminished appetite. Patient notes experiencing the aforementioned symptoms since morning of 05/26. Chest pressure has been present for 2 days. It is said to be localized to the epigastric. Chest discomfort is worse on inspiration. There is no reported radiation to the back, extremities, neck or jaw. Patient notes exertional dyspnea at baseline; however, it is noted to be worsening over the past 4 days. Over the past 4 days, patient notes presence of peripheral edema for which he has been taking an extra dose of Lasix. Patient reports exposure to brother on Sunday (05/23) with cough and flu-like symptoms. Patient reports chronic respiratory failure. He notes being prescribed oxygen in the past, however has not been wearing due to lack of access to oxygen for approximately 1 year due to being homeless. Patient reports adherence with his medication regimen, as well as adherence with routine follow-up care. Discharge Providers Provider Date of admission: 05/27/19 10:54 Discharge Date: 05/29/19 Consults: 05/26/19 23:25 Consult to Respiratory Therapy Evaluate & Treat Comment: Physician Instructions: Evaluate and treat 05/27/19 03:09 Consult to Discharge Planning Routine Comment: homeless Discharge provider: Bg Dickerson DO Summary Hospital Course Discharge Diagnosis: Please see discharge summary by diagnosis below. Hospital Course: 1. Acute influenza a viral pneumonia, present on admission. Active. - Influenza A positive via PCR - Started on Tamiflu 75 mg BID x5 days, received first dose in ED (05/26 2018), patient to complete course at home, sent prescription to his pharmacy in [place]. He was discharged against medical advice as per problem 2 below. - Supportive care was provided. 2. Acute on chronic hypoxemic and hypercapnic respiratory failure with hypoxia, present on admission, active - Suspected to be exacerbated by acute viral illness and superimposed on underlying co-morbid conditions of COPD, asthma, heart failure with reduced EF, and morbid obesity - ABG... pH 7.33 pCO2 51.6 pO2 61 HCO3 27, partially compensated primary respiratory acidosis - CXR... Multifocal bilateral alveolar opacities, infection vs inflammation (pulm edema is not excluded, but felt less likely) - Labs and urine not indicative of an infection. No SIRS / sepsis. - patient was tolerating BiPAP, and the morning of his discharge he was on supplemental nasal cannula only saturating in the upper 80s. He did desaturate into the mid 80s when speaking at rest. Patient was counseled on the risks of leaving against medical advice, including further desaturation, confusion, arrhythmia, and possible . He was told not to drive. 3. Epigastric pain, acute, present on admission, active Patient was having epigastric discomfort vs. mid-sternal or substernal chest pain. ACS was ruled out, and his symptoms resolved. Etiology unclear. He was also started on a PPI while admitted, no further medications were added upon discharge. This may have also been related to coughing from his influenza pneumonia. 4. Congestive heart failure, systolic, chronic condition, present on admission, active Elevated BNP 1060 on admission. There is an inverse relationship b/w BNP and BMI, patient is morbidly obese w/ BMI of 55, BNP sensitivity is best interpreted taking into account entire clinical picture. Patient did not appear clinically volume overloaded. He did receive 1 dose of IV Lasix in the emergency room, however this was not continued. He resumed his home oral Lasix dosing. - Patient may have had symptoms of decompensated HF in the 4 days prior to admission, but it has improved with additional diuretic doses. - Resume SENIOR PRODUCT MARKETING MANAGER regimen of Lasix - echocardiogram showed an EF of 25%, this is reportedly increased per the patient from approximately 10% previously. - Continue SENIOR PRODUCT MARKETING MANAGER regimen of carvedilol, lisinopril, furosemide, and spironolactone 5. COPD/asthma, chronic, present on admission. Stable. -does not represent COPD exacerbation. No medication changes were made. 6. Chronic atrial fibrillation, present on admission. Stable. -Patient has history of radiofrequency ablation and pacemaker with AICD. -EKG demonstrated ventricular pacing. -Continue anticoagulation with Eliquis 5 mg twice daily and carvedilol 12.5 mg twice daily. 7. Hypertension, chronic, present on admission. Stable. -Normotensive, continue to monitor -Continue carvedilol 12.5 mg twice daily, lisinopril 5 mg twice daily, and spironolactone 25 mg daily. -no changes were made to his chronic hypertensive regimen. Patient was ultimately discharged against medical advice. The patient understood the risks of leaving as noted above. He was sent a prescription for Tamiflu upon discharge. Status at Discharge Cognitive/behavioral status at discharge: oriented Time Spent with Patient Time spent: Greater than 30 minutes Exam Vital Signs (past 8 hours): - 05/29/19 01:30 05/29/19 01:38 05/29/19 04:00 Temperature 96.5 F L Pulse Rate 75 Respiratory Rate 22 Blood Pressure 89/53 L Pulse Oximetry 92 90 L 91 05/29/19 05:26 05/29/19 06:00 Temperature 97.0 F L Pulse Rate 78 Respiratory Rate 19 Blood Pressure 93/53 L Pulse Oximetry 92 92 Fraction of Inspired Oxygen 55 Oxygen Delivery Method High Flow Nasal Cannula Oxygen Flow Rate 8 Narrative Exam Narrative: GENERAL APPEARANCE: Obese male, Well developed, well nourished, in no acute distress. SKIN: Inspection of the skin reveals no rashes, ulcerations or petechiae. HEENT: Moist mucous membranes, EOMI, no scleral icterus. NECK: Supple and symmetric. There was no thyroid enlargement, and no tenderness, or masses were felt. CHEST: Obese, normal contour, without any kyphoscoliosis LUNGS: Patient refused auscultation, but he was in no respiratory distress on room air. O2 saturations were between 87 and 93%. Speaking in full sentences. CARDIOVASCULAR: Patient refused auscultation, he did have regular rate and rhythm, paced on telemetry. ABDOMEN: refused auscultation, nondistended, appeared soft MUSCULOSKELETAL: There were no effusions noted. Muscle strength was grossly normal. EXTREMITIES: No cyanosis, clubbing or edema. NEUROLOGIC: Alert and oriented x 3. Normal affect. Gait was normal. Objective Labs Result Diagrams: 05/28/19 04:46 05/28/19 04:46 Labs: Laboratory Results - last 24 hr 05/28/19 10:05 ABG pH 7.35 ABG pCO2 51.8 H ABG pO2 65 L ABG HCO3 29 H ABG Total CO2 30 ABG O2 Saturation 91 L ABG Base Excess 3.0 H FiO2 0.50 Discharge Plan Discharge Plan Patient Disposition: Left Against Medical Advice Discharge comment: You were admitted to the hospital with respiratory failure due to the flu. You left against medical advice as your oxygen was low and your CO2 levels were high. Leaving like this puts you at risk for further shortness of breath, possible loss of consciousness, confusion, arrythmias and . Please follow up with a provider as soon as possible in [place] and if you become symptomatic on the way please do not hesitate to stop for care elsewhere or call an ambulance. Discharge orders & Medications Discharge Orders: Discharge (Order); Ordered 05/29/19 Ordered By: Bg Dickerson Prescriptions: New oseltamivir 75 mg capsule 75 mg PO BID 5 Days Qty: 10 RF: 0 Continued furosemide 40 mg tablet 40 mg PO DAILY RF: 0 carvedilol 12.5 mg tablet 12.5 mg PO BID RF: 0 spironolactone 25 mg tablet 25 mg PO DAILY RF: 0 lamotrigine 25 mg tablet 25 mg PO BEDTIME RF: 0 oxycodone-acetaminophen 5-325 mg tablet 1 tab PO QID PRN (Reason: Pain (Scale Score 1-3)) RF: 0 lisinopril 5 mg tablet 5 mg PO BID RF: 0 duloxetine 30 mg capsule,delayed release(DR/EC) 90 mg PO DAILY RF: 0 Eliquis 5 mg tablet 5 mg PO BID RF: 0 Diet/Activity/Treatments Diet: Diet as Tolerated Activity: As tolerated Discharges patient from system. Discharge Date/Time: 05/29/19 08:25 Quality VTE Deep Vein Thrombosis/Pulmonary Embolism Present on Admission: No
[2019-05-29] MEDS: APIXABAN 5 MG TABLET PO (07:47)
[2019-05-29] MEDS: carvediloL 12.5 MG TABLET PO (07:47)
[2019-05-29] MEDS: DULOXETINE 30 MG CAPSULE 90 MG PO (07:47)
[2019-05-29] MEDS: OSELTAMIVIR 75 MG CAPSULE PO (07:48)
[2019-05-29] MEDS: guaiFENesin ER 600 MG TAB 1200 MG PO (07:48)
[2019-05-29] MEDS: SPIRONOLACTONE 25 MG TABLET PO (07:48)
[2019-05-29] MEDS: OXYCODONE/ACETAMINOPHEN 5/325 TABLET 1 TAB PO (07:48)
[2019-05-29] MEDS: lisinopriL 5 MG TABLET PO (07:48)
[2019-05-29] MEDS: FUROSEMIDE 40 MG TABLET PO (07:48)
--- NOTE | 2019-05-29 09:26 | PC.NURSE ---
Discharge Note Patient reports he'd like to check myself out at 0800. Instructed this would be leaving the hospital against medical advice and pt acknowledged understanding. Dr. Dickerson notified and met with pt at bedside. Valuables retrieved from safe and returned to pt. All belongings with pt including clothing, cell phone, and branding specialist. SpO2 90% on RA. Brought to hospital exit via wheelchair by staff member and left with nephew. AMA paperwork signed prior to d/c.
== END 2019-05-29 08:25 | disposition left against medical advice (07) | DRG 189 ==
LOC: ED 20:13 → AC 20:17 → ICU 21:00
PROVIDERS: Emergency Medicine; Internal Medicine; Admitting Provider Nurse Practitioner Gerontology; Emergency Provider Emergency Medicine; Visit Provider Nurse Practitioner Gerontology
DX: J96.22 Acute and chronic respiratory failure with hypercapnia (principal); J10.08 Influenza due to other identified influenza virus with other specified pneumonia; J12.9 Viral pneumonia, unspecified; I48.20 Chronic atrial fibrillation, unspecified; Z68.43 Body mass index [BMI] 50.0-59.9, adult; E66.2 Morbid (severe) obesity with alveolar hypoventilation; I50.22 Chronic systolic (congestive) heart failure; J44.0 Chronic obstructive pulmonary disease with (acute) lower respiratory infection; J96.21 Acute and chronic respiratory failure with hypoxia; R10.13 Epigastric pain; Z59.0 Homelessness; I11.0 Hypertensive heart disease with heart failure; Z53.29 Procedure and treatment not carried out because of patient's decision for other reasons; Z91.19 Patient's noncompliance with other medical treatment and regimen; I25.10 Atherosclerotic heart disease of native coronary artery without angina pectoris; J45.909 Unspecified asthma, uncomplicated; Z79.01 Long term (current) use of anticoagulants; Z87.891 Personal history of nicotine dependence; Z95.0 Presence of cardiac pacemaker
CPT/HCPCS: 36415; 36600; 71045; 80048; 80053; 81001; 82550; 82805; 83605; 83690; 83735; 83880; 84484; 85025; 85610; 85730; 87040; 87502; 87797; 93005; 93306; 94640; 94660; 96374; 96375; 96376; 99285; 99291; G0378; C9113; J1885; J1940; J2270; J2405; J3010; J7613; Q9957